=== PATIENT | female | born 1990 | race Caucasian/White ===

== ENCOUNTER 2021-07-30 13:03 | Emergency (ER) | payer OTHER, SELFPAY ==
--- NOTE | 2021-07-30 13:07 | ED.URI ---
HPI - URI/Sore Throat General Chief Complaint: Upper Respiratory Infection Stated Complaint: sore throat Time Seen by Provider: 07/30/21 13:07 Source: patient and RN notes reviewed History of Present Illness HPI Narrative: Patient is a 30-year-old female who presents the urgent care with complaints of a scratchy throat that started this morning. Patient has also brought her daughter in the facility who is symptomatic for strep with headache, fever and nausea. Mother states that if my daughter has it I have it . Otherwise, the patient does not have any other acute complaints. No other upper respiratory complaints. Denies of fever, chills, nausea or vomiting. Has not taken anything [id number] for her sore throat. No other acute complaints. No acute distress noted. Patient read the plan of care. Some parts of this dictation were generated by voice recognition software and may contain typographical and/or grammatical inaccuracies. Related Data Home Medications Medication Instructions Recorded Confirmed drospirenone-ethinyl estradiol 0.02 tablet PO DAILY 07/30/21 07/30/21 Allergies Allergy/AdvReac Type Severity Reaction Status Date / Time No Known Allergies Allergy Verified 07/30/21 13:28 Review of Systems Review of Systems: CONSTITUTIONAL: Denies fever, chills, or sweats. EYES: Denies visual changes, redness, or discharge. ENT: Denies rhinorrhea, congestion, otalgia. Reports of scratchy throat CARDIOVASCULAR: Denies chest pain, palpitations, or edema. RESPIRATORY: Denies cough or dyspnea. GASTROINTESTINAL: Denies abdominal pain, nausea, vomiting, or diarrhea. GENITOURINARY: Denies dysuria or hematuria. SKIN: Denies rash or itching. MUSCULOSKELETAL: Denies back pain, joint pain, or myalgia. NEUROLOGIC: Denies headache, numbness, or weakness. All other systems reviewed are negative, except as documented in HPI. PMFSH Comments At the time of my signature, I reviewed and agree with the nursing past medical, surgical, social, and family history. There is no relevant family history pertinent to the patient complaint. Exam Narrative: GENERAL: This is a well-nourished, well-developed patient, in no apparent distress. HEAD: normocephalic, atraumatic. EYES: PERRL. Sclera clear/white. Vision is grossly intact. EARS: External ears normal, auditory canals clear and without drainage, TMs normal without perforation. Hearing grossly intact. NOSE: External nose normal with no obvious nasal discharge, nares without redness, no rhinorrhea. THROAT: Mucous membranes moist, posterior pharynx clear. Mild postnasal drainage NECK: Neck supple CARDIOVASCULAR: Regular rate and rhythm without murmurs, gallops, or rubs. RESPIRATORY: Clear to auscultation. Breath sounds equal bilaterally. No wheezes, rales, or rhonchi. SKIN: warm, intact with no suspicious lesions or rash, good texture and turgor. NEURO: awake, alert, and oriented to person, place and time. There were no obvious focal neurologic abnormalities. EXTREMITIES: No clubbing, cyanosis, or edema. Course Course Level of Care: Express Care Visit Vital Signs Vital signs: Vital Signs Temperature 98.5 F 07/30/21 13:10 Pulse Rate 72 07/30/21 13:10 Respiratory Rate 18 07/30/21 13:10 Blood Pressure 109/75 07/30/21 13:10 Pulse Oximetry 100 07/30/21 13:10 Temperature 98.5 F 07/30/21 13:10 Pulse Rate 72 07/30/21 13:10 Respiratory Rate 18 07/30/21 13:10 Blood Pressure 109/75 07/30/21 13:10 Pulse Oximetry 100 07/30/21 13:10 Reviewed MDM - URI/Sore Throat MDM Narrative Medical decision making narrative: We will culture your strep swab and call if medication is necessary, based on culture results. Would advise not sharing her toothbrush with your daughter. Do not share utensils or drinks until you have your culture results from the strep swabs. Increase your water intake. Use Tylenol/ibuprofen as needed. Follow-up with your PCP within 2 to
[2021-07-30 13:10] VITALS: BP 109/75; PULSE 72; RESP 18; TEMP 36.9; O2SAT 100
== END 2021-07-30 13:54 | disposition home or self-care (01) ==
PROVIDERS: Emergency Provider Nurse Practitioner Family
DX: J02.9 Acute pharyngitis, unspecified (principal)
CPT/HCPCS: 87081; 99212; G0463

== ENCOUNTER 2022-04-13 10:42 | Outpatient (CLI) | payer OTHER, SELFPAY ==
[2022-04-13 11:07] LABS: Basophils Percent Auto 0.4 % (0.2-1.2); Eosinophils Absolute Auto 0.2 K/mm3 (0-0.3); Eosinophils Percent Auto 2.8 % (0-4.4); Hematocrit 39.3 % (37.0-47.0); Hemoglobin 13.5 g/dL (12.0-15.0); Immature Granulocyte Absolute 0.02 K/mm3 (0.00-0.031); Immature Granulocyte Percent A 0.3 % (0-0.5); Lymphocytes Percent Auto 32.7 % (18.3-44.2); Mean Corpuscular HGB Conc 34.4 g/dl (32-36); Mean Corpuscular Hemoglobin 31.2 pg (26-34); Mean Corpuscular Volume 90.8 fl (80-100); Mean Platelet Volume 10.3 fl (7.4-10.4); Monocytes Absolute Auto 0.5 K/mm3 (0.1-0.6); Neutrophils Absolute Auto 3.8 K/mm3 (1.3-6.7); Neutrophils Percent Auto 56.8 % (45.5-73.1); Platelet Count Result 264 k/mm3 (150-375); Red Blood Count 4.33 M/mm3 (4.2-5.4); Red Cell Distribution Width 12.2 % (11.5-14.5); White Blood Count 6.7 K/mm3 (4.5-10.0)
[2022-04-13 11:25] LABS: Cholesterol 183 mg/dL (0-200); HDL Direct 80 mg/dL; Triglycerides 59 mg/dL (<150)
[2022-04-13 11:40] LABS: Hemoglobin A1C 4.8 % (<5.7)
[2022-04-13 11:48] LABS: LDL Cholesterol Direct 86 mg/dL
[2022-04-13 11:54] LABS: Beta HCG Quantitative < 2.39 mIU/ML
[2022-04-16 12:57] LABS: DHEA-Sulfate 107 mcg/dL (23-266)
[2022-04-17 08:06] LABS: FSH 4.1 mIU/mL (***); Progesterone 0.3 ng/mL (***); Prolactin 4.7 ng/mL (***)
[2022-04-17 10:45] LABS: Testosterone Total 30 ng/dL (2-45)
[2022-04-21 20:37] LABS: Estradiol, Ultrasensitive 428 pg/mL
== END 2022-04-13 10:43 | disposition home or self-care (01) ==
PROVIDERS: Visit Provider Obstetrics & Gynecology
DX: N93.9 Abnormal uterine and vaginal bleeding, unspecified (principal)
CPT/HCPCS: 36415; 80061; 82627; 82670; 83001; 83036; 83498; 84144; 84146; 84402; 84403; 84702; 85025